=== PATIENT | male | born 1990 | race Caucasian/White ===

== ENCOUNTER 2021-07-13 15:22 | Emergency (ER) | payer BC ==
[2021-07-13 15:37] VITALS: BP 135/112
[2021-07-13] MEDS ORDERED: TETANUS/DIPHTHERIA/PERTUSSIS 0.5 ML SYRINGE IM ONE (15:40)
[2021-07-13] MEDS ORDERED: ROPIVACAINE 0.5% PF 20 ML VIAL SUBQ STA (15:40)
--- NOTE | 2021-07-13 16:21 | XRAY Report ---
PROCEDURE: Finger(s) LT INDICATIONS: L thumb injury vs danilo TECHNIQUE: AP hand, 2 views of the first digit acquired. COMPARISON: None. FINDINGS: Bones: No definite fractures or dislocations. No suspicious bony lesions. Soft tissues: There is a soft tissue laceration along the radial dorsal aspect of the first digit dis tally with associated small clustered foci of radiopaque foreign bodies of indeterminate etiology. IMPRESSION: 1. No definite fracture or dislocation. 2. Soft tissue laceration of the first digit distally with associated small foci of soft tissue forei gn bodies. Reviewed by: Elías Vasquez MD on 07/13/2021 4:20 PM PDT Approved by: Elías Vasquez MD on 07/13/2021 4:20 PM PDT Station ID: [id number]
[2021-07-13] MEDS ORDERED: cephALEXin 250 MG CAPSULE PO STA (16:44)
--- NOTE | 2021-07-13 17:30 | ED Physician Documentation ---
PD HPI UPPER EXT INJURY - Stated complaint Stated Complaint: LEFT THUMB LAC - Chief complaint Chief Complaint: Trauma Ext - History obtained from History obtained from: Patient - History of Present Illness Location: Left, Hand (thumb) Where injury occurred: Home Timing - onset: How many hours ago (1) Timing - duration: Hours (1) Pain level max: 8 Pain level now: 8 Improved by: Rest Worsened by: Moving, Palpating Associated symptoms: No: Weakness, Numbness, Tingling Contributing factors: No: Anticoagulated - Additonal information Additional information: 31-year-old, left-handed male presents after injuring his left distal thumb on a danilo today. Complains of laceration and bleeding. Review of Systems Constitutional: denies: Fever, Chills Skin: denies: Rash Musculoskeletal: denies: Neck pain, Back pain Neurologic: denies: Head injury PD PAST MEDICAL HISTORY - Past Medical History Past Medical History: No - Present Medications Home Medications: Ambulatory Orders Medication Instructions Recorded Confirmed Oxycodone HCl/Acetaminophen 1 - 2 each PO Q6H PRN #14 tablet 07/13/21 [Percocet 5-325 mg Tablet] cephALEXin [Keflex] 500 mg PO Q6H #28 cap 07/13/21 - Allergies Allergies/Adverse Reactions: Allergies Allergy/AdvReac Type Severity Reaction Status Date / Time diphenhydramine Allergy Anaphylaxis Verified 07/13/21 15:37 [From Benjoe] - Social History Does the pt smoke?: No Smoking Status: Never smoker PD ED PE NORMAL - Vitals Vital signs reviewed: Yes - General General: Alert and oriented X 3, No acute distress - HEENT HEENT: Moist mucous membranes - Neck Neck: Supple, no meningeal sign - Derm Derm: Warm and dry - Neuro Neuro: Alert and oriented X 3 PD ED PE EXPANDED - Extremities ROBERT UE/Hands Visual: 1 - laceration (There is a large abrasion to the dorsal aspect of the left thumb. The nail and nail plate are fully visible.) Results - Vitals Vitals: Vital Signs - 24 hr 07/13/21 15:33 Temperature 36.6 C Heart Rate 71 Respiratory 18 Rate Blood Pressure 135/112 H O2 Saturation 98 Oxygen O2 Source Room air Procedures - Regional nerve block Nerve block site: Digital - note digit(s) (L thumb) Nerve block anesthesia: Other (ropivicaine 0.5%) Nerve block aftercare: Excellent anesthesia, Patient tolerated well, No complications PD MEDICAL DECISION MAKING - ED course Complexity details: re-evaluated patient, considered differential, d/w patient ED course: Patient with essentially a skin avulsion from danilo over the nail plate up to the IP joint. Neurovascularly intact. Tendons are all intact. No fractures visible on x-ray. Tdap given. A digital block was performed with ropivacaine with excellent anesthesia. The wound was thoroughly cleansed and irrigated. Patient started on Keflex. Discussed the case with Dr. Isbell, orthopedics on-call who recommends Xeroform, gauze and Follow-up in orthopedic clinic. I also discussed the case with hand surgery on-call at [facility] who reviewed images of the patient's thumb and agree with the above plan. Patient counseled regarding signs and symptoms for which I believe and urgent re-evaluation would be necessary. Patient with good understanding of and ag reement to plan and is comfortable going home at this time This document was made in part using voice recognition software. While efforts are made to proofread this document, sound alike and grammatical errors may occur. I am prescribing a short course of short-acting opioid pain medication for this patient. I have reviewed the patients [employer] and no concerning findings were noted. I have discussed that the opioids are for short term therapy only, and will not be refilled from the ED. Departure - Departure Disposition: 01 Home, Self Care Clinical Impression: Laceration of thumb with damage to nail Qualifiers: Encounter type: initial encounter Foreign body presence: without foreign body Laterality: left Qualified Code(s): S61.112A - Laceration without foreign body of left thumb with damage to nail, initial encounter Condition: Good Instructions: ED Laceration Hand Follow-Up: Francois Isbell MD [Provider Admit Priv/Credential] - 07/16/21 Prescriptions: cephALEXin [Keflex] 500 mg PO Q6H #28 cap Oxycodone HCl/Acetaminophen [Percocet 5-325 mg Tablet] 1 - 2 each PO Q6H PRN #14 tablet PRN Reason: pain Comments: Your prescriptions were sent to [facility] in [place]. Please follow-up with your doctor for further carePlease follow-up with orthopedics on Friday for repeat evaluation. You can also see a hand surgeon either at [facility] in [place] or you can contact Dr. Lowery in [place], . Take all antibiotics until gone. Change the outer dressing when soiled. I am prescribing a short course of narcotic pain medication for you. These are potentially dangerous and addictive medications that should be used carefully. These medications may constipate you. Take an lrfq-osr-tdumzba stool softener (docusate) twice daily with plenty of water while taking these medications. If you go 24 hours without a bowel movement, take [id number]-dwm-[id number] miralax, per package instructions. Do not drink or drive while taking these medications. If you received narcotic or sedating medications while in the emergency department, do not drive for 24 hours. Store this medication in a safe, secure place and out of reach of children. It is a violation of federal law to give or sell this medication to another person or to use in a manner other than prescribed. The ED will not refill narcotic prescriptions, including prescriptions lost or stolen. To dispose of unwanted medications: 1. [facility] at [address] [facility] in [place] has a medication drop box. They accept prescription medications (in pill form) Friday through Friday 9:00 a.m. to 5:00 p.m. 2. [facility] [employer] accepts prescription medications (in pill form only) for disposal year round. Call for more informatio n. 3. Contact the [facility] for the next [facility] sponsored prescription drug collection event. , [phone], or [phone]; Discharge Date/Time: 07/13/21 17:45
== END 2021-07-13 17:45 | disposition home or self-care (01) ==
LOC: ED 15:22
DX: S61.112A Laceration without foreign body of left thumb with damage to nail, initial encounter (principal); W29.8XXA Contact with other powered hand tools and household machinery, initial encounter; Y92.009 Unspecified place in unspecified non-institutional (private) residence as the place of occurrence of the external cause; Z23 Encounter for immunization
CPT/HCPCS: 64450; 73140; 90471; 90715; 96372; 99283; 99284; A9270; J2795

== ENCOUNTER 2021-09-11 10:45 | Outpatient (CLI) | payer BC, OTHER | END 2021-09-11 23:59 | disposition home or self-care (01) | LOC: LAB.S 10:45 | PROVIDERS: ATTEND Emergency Medicine | DX: R05.9 Cough, unspecified (principal); Z20.822 Contact with and (suspected) exposure to COVID-19 ==

== ENCOUNTER 2022-08-19 14:09 | Outpatient (CLI) | payer BC, OTHER ==
--- NOTE | 2022-08-19 16:15 | XRAY Report ---
PROCEDURE: Chest 2 View X-Ray INDICATIONS: ACUTE COUGH TECHNIQUE: 2 view(s) of the chest. COMPARISON: None. FINDINGS: Surgical changes and devices: None. Lungs and pleura: No pleural effusions or pneumothorax. Lungs are clear. Mediastinum: Mediastinal contours are normal. Heart size is normal. Bones and chest wall: No suspicious bony abnormalities. Soft tissues appear unremarkable. IMPRESSION: No acute radiographic abnormality. Reviewed by: Gianfranco Carson MD on 08/19/2022 4:13 PM PDT Approved by: Gianfranco Carson MD on 08/19/2022 4:13 PM PDT Station ID: [id number]
== END 2022-08-19 14:10 | disposition home or self-care (01) ==
LOC: DI.S 14:09
PROVIDERS: ATTEND Registered Nurse
DX: R05.1 Acute cough (principal); R06.00 Dyspnea, unspecified